=== PATIENT | female | born 1950 | race Two or more races ===

== ENCOUNTER 2023-06-06 08:37 | Emergency (ER) | payer OTHER, MEDICAID ==
[~2023-06-06] VITALS: Ht 167.6 cm; Wt 106.9 kg
[2023-06-06 09:47] LABS: Basophils # (auto) 0.1 10 ^3/uL (0-0.2); Basophils % (auto) 1.3 % (0.0-2.0); Eosinophils # (auto) 0.2 10 ^3/uL (0-0.8); Eosinophils % (auto) 3.3 % (0.0-7.0); Hematocrit 39.3 % (36.0-46.0); Hemoglobin 12.9 g/dL (12.2-16.2); Lymphocytes # (auto) 1.7 10 ^3/uL (0.4-5.4); Lymphocytes % (auto) 33.8 % (10.0-50.0); Mean Corpuscular Hemoglobin 30.3 pg (28.0-32.0); Mean Corpuscular Hgb Conc. 32.9 g/dL (32.0-36.0); Mean Corpuscular Volume 92.3 fL (80.0-100.0); Monocytes # (auto) 0.3 10 ^3/uL (0-1.3); Monocytes % (auto) 6.5 % (0.0-12.0); Neutrophils # (auto) 2.7 10 ^3/uL (1.6-8.6); Neutrophils % (auto) 55.1 % (37.0-80.0); Red Blood Cells 4.26 10^6/uL (4.0-5.20); Red Cell Distribution Width 13.8 % (11.8-14.3); White Blood Cell 4.9 10^3/uL (4.4-10.8)
[2023-06-06 10:01] LABS: Chloride 107 mmol/L (98-107); Potassium 4.4 mmol/L (3.5-5.1); Sodium 140 mmol/L (136-145)
[2023-06-06 10:06] LABS: Calcium 9.2 mg/dL (8.7-10.4)
[2023-06-06] MEDS ORDERED: IOHEXOL 350 MG/ML 100ML IJ ONE (10:12)
[2023-06-06 10:16] LABS: Alkaline Phosphatase 110 U/L (46-116); Glucose 119 mg/dL (74-106)
[2023-06-06 10:18] LABS: Alanine Aminotransferase 30 U/L (7-40)
[2023-06-06 10:19] LABS: Aspartate Aminotransferase 14 U/L (13-40)
[2023-06-06 10:20] LABS: Anion Gap 6 (5-15); Carbon Dioxide 27 mmol/L (20-30)
[2023-06-06 10:22] LABS: Bilirubin, Total 0.7 mg/dL (0.2-1.0); Total Protein 7.4 g/dL (5.7-8.2)
[2023-06-06 10:45] LABS: Urine Bacteria NONE SEEN /hpf (None Seen); Urine Mucus FEW (None Seen); Urine WBC 1 /hpf (0 - 5)
[2023-06-06 10:47] LABS: Urine Specific Gravity 1.015 (1.001-1.035)
[2023-06-06 10:48] LABS: Urine Protein, UAD Trace (Negative)
[2023-06-06 10:49] LABS: Urine Blood Negative /uL (Negative); Urine Urobilinogen Normal (Negative)
[2023-06-06 10:50] LABS: Urine Clarity Clear (Clear); Urine Color Yellow (Yellow)
[2023-06-06 10:55] LABS: Albumin 4.5 g/dL (3.2-4.8)
[2023-06-06 12:21] LABS: BUN/Creatinine Ratio 17.5 (10.0-20.0); Blood Urea Nitrogen 11 mg/dL (9-23)
[2023-06-06 13:00] VITALS: BP 138/60; PULSE 62; RESP 18; TEMP 96.6; O2SAT 97
== END 2023-06-06 13:05 | disposition home or self-care (01) ==
LOC: ER 08:37
DX: I11.0 Hypertensive heart disease with heart failure (principal); I50.9 Heart failure, unspecified; E78.5 Hyperlipidemia, unspecified; F15.90 Other stimulant use, unspecified, uncomplicated; Z88.0 Allergy status to penicillin; Z88.6 Allergy status to analgesic agent
CPT/HCPCS: 36415; 71045; 71275; 80053; 81001; 84484; 85025; 93005; 93970; 99285; Q9967

== ENCOUNTER 2025-03-03 00:07 | Emergency (ER) | payer OTHER, MEDICAID ==
[~2025-03-03] VITALS: Ht 162.6 cm; Wt 100.0 kg
--- NOTE | 2025-03-03 00:25 | ED.PDOC ---
Musculoskeletal HPI Comments 74-year-old female who came to ER via EMS for lower extremity pain. Patient has history of DVT of the right leg, currently on Xarelto. Patient underwent right hip surgery yesterday, and few hours ago starting developing pain on her right lower leg. Denies any recent trauma to the leg. Denies any chest pains or shortness of breath. Chief Complaint: Lower extremity Time Seen by MD: 00:24 Primary Care Provider: Indigo Alexander Notes: [employer] Specialist Notes Allergies: Coded Allergies: Aspirin (Verified Allergy, Unknown, 06/06/23) Penicillins (Verified Allergy, Unknown, 06/06/23) Home Meds Active Scripts Gabapentin (Once-Daily) (Gabapentin) 300 Mg Tab, 300 MG PO Q6HP PRN, #60 TAB Prov:MARLENE LAND MD 03/03/25 Information Source: Patient, Emergency Med Personnel Mode of Arrival: EMS Location: Right Extremity Location: Leg Timing: Hours Prehospital treatment: None Severity: Moderate Able to Move Extremity: Yes Bear Weight: Limited Pain: Moderate Hand Dominance: Right Mechanism: Spontaneous Circumstances: Spontaneous Onset of Symptoms: Spontaneous Symptoms: Swelling, Pain Associated signs and symptoms: Leg pain (Right) Past Medical History PAST MEDICAL HISTORY: CHF, High Lipids, HTN Past Medical History (Other): DVT right leg Surgical History: Denies all surgeries 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 Family History Family History: Reviewed,noncontributory to illness Social History Smoker: Non-Smoker Alcohol: Denies ETOH Use Drugs: Marijuana Lives In: Home Constitutional: denies: chills, diaphoresis, fatigue, fever, malaise, sweats, weakness, others EENTM: denies: blurred vision, double vision, ear bleeding, ear discharge, ear drainage, ear pain, ear ringing, eye pain, eye redness, hearing loss, mouth pain, mouth swelling, nasal discharge, nose bleeding, nose congestion, nose pain, photophobia, tearing, throat pain, throat swelling, voice changes, others Respiratory: denies: cough, hemoptysis, orthopnea, SOB at rest, shortness of breath, SOB with excertion, stridor, wheezing, others Cardiovascular: denies: chest pain, dizzy spells, diaphoresis, Dyspnea on exe rtion, edema, irregular heart beat, left arm pain, lightheadedness, palpitations, PND, syncope, others Gastrointestinal: denies: abdomen distended, abdominal pain, blood streaked bowels, constipated, diarrhea, dysphagia, difficulty swallowing, hematemesis, melena, nausea, poor appetite, poor fluid intake, rectal bleeding, rectal pain, vomiting, others Genitourinary: denies: abnormal vagina bleeding, burning, dyspareunia, dysuria, flank pain, frequency, hematuria, incontinence, pain, , vagina discharge, urgency, others Neurological: denies: dizziness, fainting, headache, left sided numbness, left sided weakness, numbness, paresthesia, pre-existing deficit, right sided numbness, right sided weakness, seizure, speech problems, tingling, tremors, weakness, others Musculoskeletal: reports: muscle pain (Right leg pain); denies: back pain, gout, joint pain, joint swelling, muscle stiffness, neck pain, others Integumetry: denies: bruises, change in color, change in hair/nails, dryness, laceration, lesions, lumps, rash, wounds, others Allergic/Immunocompromised: denies: Difficulty Healing, Frequent Infections, Hives, Itching, others Hematologic/Lymphatic: denies: anemia, blood clots, easy bleeding, easy bruising, swollen glands, others Endocrine: denies: excessive hunger, excessive sweating, excessive thirst, excessive urination, flushing, intolerance to cold, intolerance to heat, unexplained weight gain, unexplained weight loss, others Psychiatric: denies: anxiety, bipolar disorder, depression, hopeless, panic disorder, schizophrenia, sleepless, suicidal, others Physical Exam General Appearance: No Apparent Distress, Normal HEENT: Normal ENT Inspection, Pharynx Normal, TMs Normal Neck: Full Range of Motion, Non-Tender, Normal, Normal Inspection Respiratory: Chest Non-Tender, Lungs Clear, No Accessory Muscle Use, No Respiratory Distress, Normal Breath Sounds Cardiovascular: No Edema, No JVD, No Murmur, No Gallop, Normal Peripheral Pulses, Regular Rate/Rhythm Breast Exam: Deferred Gastrointestinal: No Organomegaly, Non Tender, No Pulsatile Mass, Normal Bowel Sounds, Soft Genitalia: Deferred Pelvic: Deferred Rectal: Deferred Extremities: No calf tenderness, Normal capillary refill, Normal inspection, Normal range of motion, Non-tender, No pedal edema Musculoskeletal : Apperance: Normal Neurologic: Alert, kettle hand II-XII nml as Tested, No Motor Deficits, Normal Affect, Normal Mood, No Sensory Deficits Cerebellar Function: Normal Reflexes: Normal Skin: Dry, Normal Color, Warm Lymphatic: No Adenopathy Was a procedure done? Was a procedure done?: No Differential Diagnosis EXT Differential Diagnosis: Cellulitis, CHF, Deep Vein Thrombosis, Fracture, Sprain X-Ray, Labs, Meds, VS Vital Signs Date Time Temp Pulse Resp B/P (MAP) Pulse Ox O2 Delivery O2 Flow Rate FiO2 03/03/25 04:00 86 97 Room Air* 0 21 03/03/25 03:58 98.2 88 16 152/86 (108) 93 98.2 03/03/25 00:07 98.6 84 18 132/68 (89) 94 98.6 Lab Test 03/03/25 00:27 Range/Units White Blood Count 9.8 4.4-10.8 10^3/uL Red Blood Count 3.00 L 4.0-5.20 10^6/uL Hemoglobin 9.9 L 12.2-16.2 g/dL Hematocrit 28.9 L 36.0-46.0 % Mean Corpuscular Volume 96.4 80.0-100.0 fL Mean Corpuscular Hemoglobin 33.0 H 28.0-32.0 pg Mean Corpuscular Hemoglobin Concent 34.3 32.0-36.0 g/dL Red Cell Distribution Width 13.7 11.8-14.3 % Platelet Count 169 140-450 10^3/uL Mean Platelet Volume 7.8 6.9-10.8 fL Neutrophils (%) (Auto) 78.4 37.0-80.0 % Lymphocytes (%) (Auto) 11.2 10.0-50.0 % Monocytes (%) (Auto) 9.9 0.0-12.0 % Eosinophils (%) (Auto) 0.2 0.0-7.0 % Basophils (%) (Auto) 0.3 0.0-2.0 % Neutrophils # (Auto) 7.7 1.6-8.6 10 ^3/uL Lymphocytes # (Auto) 1.1 0.4-5.4 10 ^3/uL Monocytes # (Auto) 1.0 0-1.3 10 ^3/uL Eosinophils # (Auto) 0 0-0.8 10 ^3/uL Basophils # (Auto) 0 0-0.2 10 ^3/uL Nucleated Red Blood Cells 0.0 % Prothrombin Time 13.0 H 9.3-11.8 sec Prothrombin Time INR 1.25 H 0.9-1.15 Activated Partial Thromboplast Time 35.9 H 24.5-34.5 SEC Sodium Level 136 136-145 mmol/L Potassium Level 3.6 3.5-5.1 mmol/L Chloride Level 102 98-107 mmol/L Carbon Dioxide Level 27 20-31 mmol/L Anion Gap 7 5-15 Blood Urea Nitrogen 10 9-23 mg/dL Creatinine 0.54 L 0.550-1.02 mg/dL Glomerular Filtration Rate Calc 96 >90 mL/min BUN/Creatinine Ratio 18.5 10.0-20.0 Serum Glucose 134 H 74-106 mg/dL Calcium Level 8.5 L 8.7-10.4 mg/dL Examination: RLDVT CLINICAL INDICATION: Not Provided. COMPARISON: None. TECHNIQUE: Using real-time ultrasonic imaging and color Doppler the deep venous system of the right lower extremity was studied carefully. FINDINGS: Examination of the right common femoral vein, deep femoral vein, proximal, middle and distal segments of the right superficial femoral vein, right popliteal vein and right posterior tibial vein reveal normal phasicity, full compression and augmentation. No thrombus is visualized in the, images submitted. IMPRESSION: No evidence of deep venous thrombosis right lower extremity could be identified. Time of 1ST Reevaluation: 00:22 Reevaluation 1ST: Unchanged Consultation: Other (Case discussed with [facility] Dr. Singh authorization [id number] ) Patient Education/Counseling: Diagnosis, Treatment Family Education/Counseling: No Family Present Departure 1 Departure Time of Disposition: 04:40 Impression: Primary Impression: Leg pain, right Disposition: 01 HOME / SELF CARE / HOMELESS Condition: Stable e-Prescriptions Gabapentin (Once-Daily) (Gabapentin) 300 Mg Tab 300 MG PO Q6HP PRN, #60 TAB Prov: MARLENE LAND MD 03/03/25 Discharged With: Self Critical Care Note Critical Care Time?: No Stability Stability form required: No Heart Score Heart Score: Heart Score Response (Comments) Value History N/A 0 EKG N/A 0 Age N/A 0 Risk Factors N/A 0 Troponin N/A 0 Total 0 I personally scribed for MARLENE LAND MD ([email or web address]) on 03/03/25 at 00:25. Electronically submitted by Yanick Hodges ([facility]). I personally scribed for MARLENE LAND MD ([email or web address]) on 03/03/25 at 03:12. Electronically submitted by Yanick Hodges ([email or web address]). MARLENE LAND MD Mar 03, 2025 00:25
[2025-03-03 01:01] LABS: Basophils # (auto) 0 10 ^3/uL (0-0.2); Basophils % (auto) 0.3 % (0.0-2.0); Eosinophils # (auto) 0 10 ^3/uL (0-0.8); Eosinophils % (auto) 0.2 % (0.0-7.0); Hematocrit 28.9 % (36.0-46.0); Hemoglobin 9.9 g/dL (12.2-16.2); Lymphocytes # (auto) 1.1 10 ^3/uL (0.4-5.4); Lymphocytes % (auto) 11.2 % (10.0-50.0); Mean Corpuscular Hgb Conc. 34.3 g/dL (32.0-36.0); Mean Corpuscular Volume 96.4 fL (80.0-100.0); Monocytes % (auto) 9.9 % (0.0-12.0); Neutrophils # (auto) 7.7 10 ^3/uL (1.6-8.6); Neutrophils % (auto) 78.4 % (37.0-80.0); Platelet Count (auto) 169 10^3/uL (140-450); Red Cell Distribution Width 13.7 % (11.8-14.3); White Blood Cell 9.8 10^3/uL (4.4-10.8)
[2025-03-03 01:10] LABS: Chloride 102 mmol/L (98-107); Potassium 3.6 mmol/L (3.5-5.1); Sodium 136 mmol/L (136-145)
[2025-03-03 01:11] LABS: Anion Gap 7 (5-15); Carbon Dioxide 27 mmol/L (20-31)
[2025-03-03 01:14] LABS: Calcium 8.5 mg/dL (8.7-10.4)
[2025-03-03 01:16] LABS: BUN/Creatinine Ratio 18.5 (10.0-20.0); Blood Urea Nitrogen 10 mg/dL (9-23)
[2025-03-03 01:17] LABS: Glucose 134 mg/dL (74-106)
[2025-03-03 01:19] LABS: INR 1.25 (0.9-1.15); Partial Thromboplastin Time 35.9 SEC (24.5-34.5)
--- NOTE | 2025-03-03 03:09 | DVH ---
Examination: RLDVT CLINICAL INDICATION: Not Provided. COMPARISON: None. TECHNIQUE: Using real-time ultrasonic imaging and color Doppler the deep venous system of the right lower extremity was studied carefully. FINDINGS: Examination of the right common femoral vein, deep femoral vein, proximal, middle and dist al segments of the right superficial femoral vein, right popliteal vein and right posterior tibial ve in reveal normal phasicity, full compression and augmentation. No thrombus is visualized in the, linden ges submitted. IMPRESSION: No evidence of deep venous thrombosis right lower extremity could be identified. Electronically Signed 03/03/2025 03:07 Olga Lemus
[2025-03-03] MEDS ORDERED: GABA300T4 PO (03:15)
[2025-03-03 03:58] VITALS: BP 152/86; RESP 16; TEMP 98.2
[2025-03-03 04:00] VITALS: PULSE 86; O2SAT 97
== END 2025-03-03 06:47 | disposition home or self-care (01) ==
LOC: ER 00:07 → EDBD 00:07 → ER 06:47
DX: M79.661 Pain in right lower leg (principal); I11.0 Hypertensive heart disease with heart failure; I50.9 Heart failure, unspecified; F12.90 Cannabis use, unspecified, uncomplicated; Z88.6 Allergy status to analgesic agent; Z88.0 Allergy status to penicillin
CPT/HCPCS: 36415; 80048; 85025; 85610; 85730; 93971